=== PATIENT | female | born 1965 | race Caucasian/White ===

== ENCOUNTER → 2017-12-05 | Outpatient (CLI) | payer OTHER ==
[~2017-12-05] MED LIST: BENADRYL25 MG PO; CITALOPRAM; FLONASE 0.05%50 MCG; KEFLEX500 MG PO; LOESTRIN1 EAC1 PO; MECLIZINE HCL25 M1 PO; ROBAXIN500 MG PO
== END ==
LOC: M.RAD 14:53
DX: M25.561 Pain in right knee (principal); M25.562 Pain in left knee

== ENCOUNTER → 2018-08-11 | Outpatient (CLI) | payer OTHER | LOC: M.RAD 11:30 | DX: Z12.31 Encounter for screening mammogram for malignant neoplasm of breast (principal) ==

== ENCOUNTER → 2019-08-23 | Outpatient (CLI) | payer OTHER | LOC: M.RAD 13:21 | DX: Z12.31 Encounter for screening mammogram for malignant neoplasm of breast (principal) ==

== ENCOUNTER → 2019-09-27 | Outpatient (CLI) | payer OTHER | LOC: M.RAD 16:10 | DX: J98.11 Atelectasis (principal); R05 Cough; R53.83 Other fatigue; R52 Pain, unspecified; R68.83 Chills (without fever) ==

== ENCOUNTER 2020-08-22 16:34 | Emergency (ER) | payer OTHER ==
[~2020-08-22] VITALS: Ht 175.3 cm; Wt 63.5 kg
[2020-08-22] MEDS ORDERED: AUGMENTIN 875-1 EACH PO (17:17)
[2020-08-22 18:11] VITALS: BP 132/80
== END 2020-08-22 18:12 | disposition home or self-care (01) ==
LOC: M.ERS 16:34
DX: S61.452A Open bite of left hand, initial encounter (principal); Z88.2 Allergy status to sulfonamides; W54.0XXA Bitten by dog, initial encounter; Y93.89 Activity, other specified; Y92.89 Other specified places as the place of occurrence of the external cause; Y99.8 Other external cause status

== ENCOUNTER → 2020-10-20 | Outpatient (CLI) | payer OTHER ==
[~2020-10-20] MED LIST changes: +AUGMENTIN 875-1 EACH PO
== END ==
LOC: M.RAD 10:45
PROVIDERS: ATTEND Registered Nurse Diabetes Educator
DX: Z12.31 Encounter for screening mammogram for malignant neoplasm of breast (principal)

== ENCOUNTER → 2021-05-24 | Outpatient (CLI) | payer OTHER | LOC: M.ULTRA 05-23 09:00 | PROVIDERS: ATTEND Registered Nurse Diabetes Educator | DX: N64.4 Mastodynia (principal); Z80.3 Family history of malignant neoplasm of breast ==

== ENCOUNTER → 2021-07-13 | Outpatient (CLI) | payer OTHER | LOC: M.ULTRA 11:30 | PROVIDERS: ATTEND Registered Nurse Diabetes Educator | DX: R60.0 Localized edema (principal); M89.8X6 Other specified disorders of bone, lower leg; Z88.1 Allergy status to other antibiotic agents; Z88.2 Allergy status to sulfonamides ==

== ENCOUNTER → 2021-08-27 | Outpatient (CLI) | payer OTHER | LOC: M.MRI 10:55 | PROVIDERS: ATTEND Registered Nurse Diabetes Educator | DX: S83.241A Other tear of medial meniscus, current injury, right knee, initial encounter (principal); M25.861 Other specified joint disorders, right knee; R93.89 Abnormal findings on diagnostic imaging of other specified body structures; X58.XXXA Exposure to other specified factors, initial encounter; Y93.89 Activity, other specified; Y92.89 Other specified places as the place of occurrence of the external cause; Y99.8 Other external cause status ==